=== PATIENT | female | born 1995 ===

== ENCOUNTER 2016-08-12 09:21 | Emergency (ER) | payer BC, MEDICAID ==
[2016-08-12 09:31] VITALS: BP 111/76; PULSE 64; RESP 18; TEMP 97.9; O2SAT 100
--- NOTE | 2016-08-12 10:11 | ED PDOC ---
HPI: Skin/Bite Injury Time Seen by Provider: 08/12/16 09:47 Chief Complaint (Nursing): Abnormal Skin Integrity History Per: Patient (states that she has noticed blood tinged discharge from right breast last night and 4 days ago when it started. Patient is nursing her infant now. She has not have fever or chills. There is some pain to the area of the nipple, areolar and surrounding area.) History/Exam Limitations: no limitations Onset/Duration Of Symptoms: Days (4), Intermittent Episodes Current Symptoms Are (Timing): Still Present Location Of Injury: Right: Chest (breast) Past Medical History Reviewed: Historical Data, Nursing Documentation, Vital Signs Vital Signs: Last Vital Signs Temp 97.9 F 08/12/16 09:30 Pulse 64 08/12/16 09:30 Resp 18 08/12/16 09:30 BP 111/76 08/12/16 09:30 Pulse Ox 100 08/12/16 09:30 - Medical History PMH: No Chronic Diseases - Surgical History Surgical History: No Surg Hx - Family History Family History: States: No Known Family Hx - Living Arrangements Living Arrangements: With Family - Social History Current smoker - smoking cessation education provided: No - Immunization History Hx Tetanus Toxoid Vaccination: No Hx Influenza Vaccination: Yes Hx Pneumococcal Vaccination: No - Home Medications Home Medications: Ambulatory Orders Medication Instructions Recorded Cephalexin [Keflex] 500 mg PO BID #10 cap 11/10/14 Phenazopyridine Hydrochlorid2 1 tab PO TID #5 tab 11/10/14 [Pyridium] Acetaminophen [Tylenol 325mg tab] 650 mg PO Q6H PRN #50 tab 08/12/16 Cephalexin [cephalexin] 500 mg PO BID #20 cap 08/12/16 - Allergies Allergies/Adverse Reactions: Allergies Allergy/AdvReac Type Severity Reaction Status Date / Time No Known Allergies Allergy Verified 08/12/16 09:34 Review of Systems ROS Statement: Except As Marked, All Systems Reviewed And Found Negative Constitutional: Negative for: Fever, Chills Gastrointestinal: Negative for: Nausea, Vomiting, Abdominal Pain Skin: Positive for: Other (discharge) Physical Exam - Reviewed Nursing Documentation Reviewed: Yes Vital Signs Reviewed: Yes - Physical Exam Appears: Positive for: Well, Non-toxic, No Acute Distress Head Exam: Positive for: ATRAUMATIC, NORMAL INSPECTION, NORMOCEPHALIC Skin: Positive for: Normal Color (no redness or induration. milk expressible. not blood noticed. there is tenderness to exam. - Exam is chaperoned by alicia Gonzales.), Warm Eye Exam: Positive for: EOMI, Normal appearance, PERRL ENT: Positive for: Normal ENT Inspection Neck: Positive for: Normal, Painless ROM Cardiovascular/Chest: Positive for: Regular Rate, Rhythm Respiratory: Positive for: CNT, Normal Breath Sounds Gastrointestinal/Abdominal: Positive for: Normal Exam, Bowel Sounds, Soft Back: Positive for: Normal Inspection Extremity: Positive for: Normal ROM Neurologic/Psych: Positive for: Alert, Oriented - ECG O2 Sat by Pulse Oximetry: 100 Disposition - Clinical Impression Clinical Impression: Mastitis, right, acute - Patient ED Disposition Is Patient to be Admitted: No Doctor Will See Patient In The: Office Counseled Patient/Family Regarding: Diagnosis, Need For Followup, Rx Given - Disposition Disposition: Routine/Home Disposition Time: 10:14 Condition: STABLE Prescriptions: Cephalexin [cephalexin] 500 mg PO BID #20 cap Acetaminophen [Tylenol 325mg tab] 650 mg PO Q6H PRN #50 tab PRN Reason: Pain, Mild (1-3) Instructions: Mastitis (ED) Print Language: ISRAELI
== END 2016-08-12 10:50 | disposition home or self-care (01) ==
LOC: H.ER 09:21
DX: N61.0 Mastitis without abscess (principal)

== ENCOUNTER 2017-07-09 19:54 | Emergency (ER) | payer MEDICAID ==
[2017-07-09 20:14] VITALS: O2SAT 98
[2017-07-09] MEDS ORDERED: Sodium Chloride 0.9% 1,000 ML IV STA (23:06)
--- NOTE | 2017-07-09 23:18 | ED PDOC ---
HPI: General Adult Time Seen by Provider: 07/09/17 22:56 Chief Complaint (Nursing): Flu-like Symptoms Chief Complaint (Provider): Flu-like Symptoms History Per: Patient History/Exam Limitations: no limitations Onset/Duration Of Symptoms: Days (x1 day) Current Symptoms Are (Timing): Still Present Additional Complaint(s): 21 y/o female presents to the ED complaining of fever, cough, nasal congestion x yesterday. Notes taking Tylenol at about 8pm with no relief. Also notes that her daughter was diagnosed with flu by her noodle catalyst maker 2 days ago. . Reports generalized body aches, green yellow phlegm, headache, malaise, fatigue, nausea and vomiting (non-bilious non-bloody). Also reports dysuria and suprapubic pain. Denies frequency, vaginal discharge, or any further medical complaints. Past Medical History Reviewed: Historical Data, Nursing Documentation, Vital Signs Vital Signs: Last Vital Signs Temp 102.9 F H 07/09/17 20:06 Pulse 139 H 07/09/17 20:06 Resp 18 07/09/17 20:06 BP 106/65 07/09/17 20:06 Pulse Ox 98 07/09/17 20:06 - Medical History PMH: No Chronic Diseases - Surgical History Surgical History: No Surg Hx - Family History Family History: States: Unknown Family Hx - Social History Current smoker - smoking cessation education provided: No Alcohol: None Drugs: Denies - Immunization History Hx Tetanus Toxoid Vaccination: No Hx Influenza Vaccination: No Hx Pneumococcal Vaccination: No - Home Medications Home Medications: Ambulatory Orders Medication Instructions Recorded No Known Home Med 06/04/17 - Allergies Allergies/Adverse Reactions: Allergies Allergy/AdvReac Type Severity Reaction Status Date / Time No Known Allergies Allergy Verified 07/09/17 20:05 Review of Systems ROS Statement: Except As Marked, All Systems Reviewed And Found Negative (As per HPI, otherwise negative) Constitutional: Positive for: Fever, Malaise (and fatigue), Other (Generalized body aches) ENT: Positive for: Nose Congestion Respiratory: Positive for: Cough (with green-yellow phlegm) Gastrointestinal: Positive for: Nausea, Vomiting (non-bilious non-bloody), Abdominal Pain (suprapubic pain) Genitourinary Female: Positive for: Dysuria. Negative for: Frequency, Vaginal Discharge Neurological: Positive for: Headache - ECG O2 Sat by Pulse Oximetry: 98 (RA) Pulse Ox Interpretation: Normal Medical Decision Making Medical Decision Making: Time: 23:06 Initial Impression: influenza like illness Differential diagnosis: Viral illness, UTI, sepsis, pneumonia Plan: Venous blood gas CMP Urine dipstick Urine CBC w/ differential Chest x-ray Acetaminophen 975mg PO Toradol 15mg IVP Sodium chloride 1l IV Oseltamivir 75mg PO Blood culture Urine culture Urinalysis Scribe Attestation: Documented by Byron Mc acting as a scribe for Kassie Garrison MD. Scribe Attestation: All medical record entries made by the Scribe were at my direction and personally dictated by me. I have reviewed the chart and agree that the record accurately reflects my personal performance of the history, physical exam, medical decision making, and the department course for this patient. I have also personally directed, reviewed, and agree with the discharge instructions and disposition. Disposition - Disposition
[2017-07-10 00:23] LABS: BASO % 0.4 % (0.0-2.0); EOS % 0.1 % (0.0-4.0); HEMOGLOBIN 13.6 g/dL (12.0-16.0); LYMPH # 1.1 K/uL (1.0-4.3); MEAN CELL VOLUME 88.9 fl (81.0-99.0); MEAN CORPUSCULAR HEMOGLOBIN 29.9 pg (27.0-31.0); MEAN CORPUSCULAR HGB CONC 33.6 g/dL (33.0-37.0); MEAN PLATELET VOLUME 8.1 fl (7.2-11.7); MONO # 0.7 K/uL (0.0-0.8); MONO % 8.1 % (0.0-10.0); NEUT # 6.6 K/uL (1.8-7.0); NEUT % 78.4 % (50.0-75.0); RBC 4.55 Mil/uL (3.80-5.20); RED CELL DISTRIBUTION WIDTH 12.5 % (11.5-14.5); WHITE BLOOD COUNT 8.4 K/uL (4.8-10.8)
[2017-07-10 00:28] LABS: SQUAMOUS EPITHIAL 1 /hpf (0-5); URINE BILIRUBIN NEGATIVE (NEGATIVE); URINE BLOOD SMALL (NEGATIVE); URINE CLARITY SLIGHTY-CLOUDY (Clear); URINE COLOR YELLOW (YELLOW); URINE GLUCOSE (UA) NEG (Normal); URINE LEUKOCYTE ESTERASE NEG Leu/uL (Negative); URINE NITRATE NEGATIVE (NEGATIVE); URINE PROTEIN NEGATIVE (NEGATIVE); URINE UROBILINOGEN 0.2-1.0 mg/dL (0.2-1.0)
[2017-07-10 00:31] LABS: VENOUS BLOOD GAS PCO2 31 mmHg (40-60); VENOUS BLOOD GAS PO2 25 mm/Hg (30-55); VENOUS BLOOD PH 7.49 (7.32-7.43)
[2017-07-10 02:15] VITALS: PULSE 97; RESP 16; TEMP 98.4
[2017-07-10] MEDS ORDERED: Sodium Chloride 0.9% 1,000 ML IV STA (02:24)
[2017-07-10 02:33] LABS: ALB/GLOB RATIO 1.3 (1.0-2.1); ALT/SGPT 20 U/L (9-52); AST/SGOT 29 U/L (14-36); BLOOD UREA NITROGEN 10 mg/dl (7-17); CALCIUM 9.6 mg/dL (8.4-10.2); GFR AFRICAN-AMERICAN > 60; GFR NON-AFRICAN AMERICAN > 60
[2017-07-10 03:49] VITALS: BP 101/62
--- NOTE | 2017-07-10 04:13 | ED PDOC ---
- Laboratory Results Result Diagrams: 07/10/17 00:20 07/10/17 02:27 - ECG O2 Sat by Pulse Oximetry: 98 Medical Decision Making Medical Decision Making: Time: 00:00 Patient is signed over to me by Dr. Kassie Garrison pending labs and reevaluation. Time: 04:00 Upon provider reevaluation patient is feeling better, is medically stable, and requires no further treatment in the ED at this time. Patient will be discharged home. Counseling was provided and all questions were answered regarding diagnosis. There is agreement to discharge plan. Return if symptoms persist or worsen. Scribe Attestation: Documented by Byron Mc acting as a scribe for Noah Saini MD. Scribe Attestation: All medical record entries made by the Scribe were at my direction and personally dictated by me. I have reviewed the chart and agree that the record accurately reflects my personal performance of the history, physical exam, medical decision making, and the department course for this patient. I have also personally directed, reviewed, and agree with the discharge instructions and disposition. Disposition - Clinical Impression Clinical Impression: Influenza - POA Present On Arrival: None - Disposition Referrals: [facility] [Outside] Disposition: Routine/Home Disposition Time: 04:00 Condition: IMPROVED Prescriptions: Oseltamivir Phosphate [Tamiflu] 75 mg PO BID 5 Days #10 capsule Instructions: Influenza (ED) Forms: [employer] (Slovak)
--- NOTE | 2017-07-10 08:35 | RAD ---
HISTORY: cough fever COMPARISON: No prior. TECHNIQUE: Chest PA and lateral FINDINGS: LUNGS: No active pulmonary disease. PLEURA: No significant pleural effusion identified. No pneumothorax apparent. CARDIOVASCULAR: Normal. OSSEOUS STRUCTURES: No significant abnormalities. VISUALIZED UPPER ABDOMEN: Normal. OTHER FINDINGS: None. IMPRESSION: No active disease.
== END 2017-07-10 04:16 | disposition home or self-care (01) ==
LOC: H.ER 19:54
DX: J11.1 Influenza due to unidentified influenza virus with other respiratory manifestations (principal)
CPT/HCPCS: 71046; 80053; 81003; 81025; 82803; 85025; 87040; 87086; 87804; 96361; 96374; 99284; J1885; J7040; J7042